=== PATIENT | male | born 1965 | race Caucasian/White ===

== ENCOUNTER 2022-01-31 09:33 | Outpatient (CLI) | payer BC, SELFPAY ==
--- NOTE | ~2022-01-31 | XR_ITS ---
EXAM: XR wrist RT min 3V HISTORY: Pain in posterior right wrist following injury 2mo ago COMPARISON: None available FINDINGS: Mineralization. No fracture or dislocation. Scapholunate interval widening. Narrowing and sclerosis between the radial styloid and scaphoid. Mild capital lunate narrowing. No lytic or blastic lesions. No concerning periosteal changes. IMPRESSION: No acute osseous finding in the right wrist. 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 Reviewed, dictated and finalized at location K. IMPRESSION: No acute osseous finding in the right wrist. 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
== END 2022-01-31 09:34 | disposition home or self-care (01) ==
PROVIDERS: PCP Internal Medicine; Visit Provider Orthopaedic Surgery
DX: M25.531 Pain in right wrist (principal)
CPT/HCPCS: 73110

== ENCOUNTER 2024-05-14 02:32 | Day surgery (SDC) | payer BC, SELFPAY ==
[2024-05-01 11:14] VITALS: BMI 26.5
[2024-05-14 08:50] VITALS: BP 137/83; PULSE 68; RESP 18; TEMP 36.1; O2SAT 100; BMI 26.1
[2024-05-14] MEDS: LACTATED RINGERS 1,000 ML 150 ML IV CONT (08:57)
--- NOTE | 2024-05-14 08:58 | P.PNAN_ITS ---
Anes - Eval Pre Procedure Procedure: Operation Date: 05/14/24 10:00 Proposed Procedures p Screening Colonoscopy - Danial Lfaleur DO Date/Time: 05/14/24 08:58 Pre Op Diagnosis: History of colon polyps in 2019 Patient Data Age: 59 Gender: M Height: 1.78 m Weight: 82.6 kg Last Vital Signs Temp 36.1 C L 05/14/24 08:50 Pulse 68 05/14/24 08:50 Resp 18 05/14/24 08:50 BP 137/83 05/14/24 08:50 Pulse Ox 100 05/14/24 08:50 O2 Del Method Room Air 05/14/24 08:50 Allergies Allergy/AdvReac Type Severity Reaction Status Date / Time Anesthesia AdvReac Mild Nausea and Uncoded 05/14/24 08:50 Vomiting Home Medications Medication Instructions Recorded Confirmed Type losartan 100 1 tablet PO DAILY 05/01/24 05/14/24 History mg-hydrochlorothiazide 12.5 mg tablet lovastatin 20 mg tablet 20 mg PO DAILY 05/01/24 05/14/24 History Patient hx anesthesia problems: none Family hx anesthesia problems: post op nausea/vomiting Results Review: All pre-operative results and documents have been reviewed as part of the pre- operative evaluation. [facility] Past Medical History Medical History (Updated 05/14/24 @ 08:59 by Nadya Carlin CRNA) Arthritis HLD (hyperlipidemia) HTN (hypertension) Left wrist tendinitis Overweight Right scapholunate ligament tear Right wrist tendinitis Social History Social History Smoking status: Never smoker Alcohol intake: current Drinks per week: 10 Substance use type: does not use Living arrangements: with family Spiritual care concerns: No Exam Day of Procedure 05/14/24 08:58 Patient weight: overweight Heart: regular rate and rhythm Airway: Mallampati scale class III Neurological: alert and oriented
--- NOTE | 2024-05-14 09:06 | P.PNAN_ITS ---
Anes - Eval Final PreProcedure Day of Procedure 05/14/24 09:06 ASA classification: II Emergent: no Anesthetic plan: proceed Anesthesia type and monitoring: general and standard monitoring Results Review: All pre-operative results and documents have been reviewed as part of the pre- operative evaluation. Informed Consent: The patient's anesthetic plan and its attendant risks and benefits were discussed with the patient/family/POA. Questions were solicited and answers provided to the satisfaction of the patient/family/POA.
--- NOTE | 2024-05-14 10:19 | PM.IMHP ---
H&P: HPI History of Present Illness Date/Time: 05/14/24 10:19 Chief Complaint: family history of colon cancer Narrative: this is a 59-year-old man who presents for colonoscopy. His last colonoscopy was about 5 years ago. He has had polyps in the past, but most recent 1 was normal. He does have a family history of colon cancer in his father. He denies any hematochezia or melena. Review of Systems Review of Systems: All systems reviewed & are unremarkable except as noted in HPI and below Constitutional: Constitutional: Denies chills, Denies fever(s), Denies headache(s) and Denies weight loss Eyes: Eyes: Denies change in vision ENT: Denies dizziness, Denies headache(s), Denies neck mass and Denies throat swelling Cardiovascular: Cardiovascular: Denies chest pain, Denies lightheadedness and Denies dyspnea Respiratory: Respiratory: Denies cough, Denies dyspnea and Denies wheezing Gastrointestinal: Gastrointestinal: Denies abdominal pain, Denies change in bowel habits, Denies nausea and Denies vomiting Genitourinary: Genitourinary: Denies hematuria and Denies dysuria Musculoskeletal: Musculoskeletal: Reports as per HPI Integumentary/Breasts: Skin/Breast: Reports as per HPI Neurologic: Denies dizziness and Denies headache(s) Allergic/Immunologic: Allergic/Immunologic: Denies throat swelling and Denies wheezing [facility] Past Medical History Medical History (Updated 05/14/24 @ 10:20 by Danial Lafleur DO) Arthritis HLD (hyperlipidemia) HTN (hypertension) Left wrist tendinitis Overweight Right scapholunate ligament tear Right wrist tendinitis Social History Social History Smoking status: Never smoker Alcohol intake: current Drinks per week: 10 Substance use type: does not use Living arrangements: with family Spiritual care concerns: No Meds Home Medications and Allergies Home Medications Medication Instructions Recorded Confirmed Type losartan 100 1 tablet PO DAILY 05/01/24 05/14/24 History mg-hydrochlorothiazide 12.5 mg tablet lovastatin 20 mg tablet 20 mg PO DAILY 05/01/24 05/14/24 History Allergies Allergy/AdvReac Type Severity Reaction Status Date / Time Anesthesia AdvReac Mild Nausea and Uncoded 05/14/24 08:50 Vomiting Vital Signs Vital Signs - 24 hr 05/14/24 08:50 Temperature 36.1 C L Pulse Rate 68 Respiratory Rate 18 Blood Pressure 137/83 Pulse Oximetry 100 Oxygen Delivery Room Air Exam Const: General: no acute distress and alert Orientation/consciousness: patient oriented x3 HENMT: Head: normocephalic and atraumatic Ears: hearing grossly normal bilaterally Face/Nose/Sinus: Normal nares present Mouth: Yes Normal oral and palatal mucosa present Eyes: Periorbital: periorbital findings normal Sclera: sclerae normal EOM: EOMs intact bilaterally Neck: Neck: normal visual inspection, no lymphadenopathy and trachea midline Chest: Chest palpation & inspection: normal inspection of the chest Resp: Effort & Inspection: normal respiratory effort Auscultation: clear to auscultation bilaterally Cardio: Jugular venous distension: no JVD Rate: regular rate Rhythm: regular rhythm Heart sounds: S1 normal heart sound present and S2 normal heart sound present Peripheral pulses: Peripheral pulses 2+ throughout GI: Inspection: normal to inspection GI Palp: Yes Soft to palpation, No Tenderness to palpation present (GI), No Guarding due to palpation present (GI) and No Rebound tenderness present Percussion: Yes normal to percussion Auscultation: normal bowel sounds : General: Yes no CVA tenderness Back/Spine/Pelvis: Back: no CVA tenderness Neuro: General: patient oriented x3, no focal motor deficits and CN's II-XI intact bilaterally Cognition (Neuro): normal cognition Speech: normal speech Motor exam (neuro): 5/5 motor strength present throughout Extrem: General: capillary refill
[2024-05-14 11:11] VITALS: BP 111/75; PULSE 66; RESP 21; O2SAT 100
[2024-05-14 11:21] VITALS: BP 112/65; PULSE 58; RESP 19; O2SAT 100
[2024-05-14 11:31] VITALS: BP 129/92; RESP 24; O2SAT 100
== END 2024-05-14 11:38 | disposition home or self-care (01) ==
PROVIDERS: PCP Internal Medicine; Visit Provider Surgery
PROC: 0DJD8ZZ Inspection of Lower Intestinal Tract, Via Natural or Artificial Opening Endoscopic (ICD-10-PCS; CPT 45378; principal; 2024-05-14 10:00)
DX: Z12.11 Encounter for screening for malignant neoplasm of colon (principal); K63.5 Polyp of colon; K57.30 Diverticulosis of large intestine without perforation or abscess without bleeding; Z80.0 Family history of malignant neoplasm of digestive organs; I10 Essential (primary) hypertension; E78.5 Hyperlipidemia, unspecified
CPT/HCPCS: 45378; J7120